=== PATIENT | male | born 1985 | race American Indian/Alaskan Native ===

== ENCOUNTER 2025-06-24 23:40 | Emergency (ER) | payer MEDICAID, SELFPAY ==
[2025-06-24 23:41] VITALS: BMI 29.8
--- NOTE | 2025-06-25 | XR_ITS ---
Examination: Duplex scan of the lower extremity, unilateral right Date and time of exam: June 25, 2025, 0107 hours INDICATIONS: Right foot pain after soccer participation 3 days ago Technique: Duplex scan of the extremity veins using B-mode/grayscale imaging and Doppler spectral analysis and color flow Attention is directed to internal echogenicity, compression and augmentation involving these veins, color flow assessment, spectral analysis Findings: Major deep venous structures in the extremity demonstrate normal course and caliber. There is no evidence of deep vein thrombosis. Normal color flow and spectral analysis Impression: Negative for DVT..
[2025-06-25 00:28] VITALS: BP 133/96; PULSE 95; RESP 18; TEMP 36.7; O2SAT 98
--- NOTE | 2025-06-25 00:46 | XR_ITS ---
Examination: Foot, right, 3 views Technique: AP, oblique, lateral views foot, 3 views Date and time of exam: June 25, 2025, 0047 hours INDICATIONS: Right foot redness swelling and pain post laceration of the foot several days ago FINDINGS: No fracture. No cortical bone destruction No foreign body Soft tissue swelling dorsum of the foot IMPRESSION: No cortical bone destruction or foreign body
--- NOTE | 2025-06-25 00:47 | PD.EDRME ---
Rapid Medical Screening Exam RME Arrival date/time: 06/24/25 23:40 39M with no significant PMH presents to ED with RLE pain, redness and swelling after he accidentally cut the bottom of his R foot several days ago. Patient has not had a tetanus shot in the past 5 years. Chief Complaint: Extremity Problem,Nontraumatic Vital signs: Vital Signs Temperature 98.1 F 06/25/25 00:28 Pulse Rate 95 06/25/25 00:28 Respiratory Rate 18 06/25/25 00:28 Blood Pressure 133/96 H 06/25/25 00:28 Pulse Oximetry (%) 98 06/25/25 00:28 Oxygen Delivery Method Room Air 06/25/25 00:28 Exam: Healing lac on R sole. Ulcerations between toes. R lower leg redness, swelling, and tenderness. Clinical Impression: osteo vs cellulitis vs ulcer vs DVT vs nec fasc
[2025-06-25 01:21] LABS: Basophils # (Auto) 0.1 Thou/mm3 (0.0-0.2); Basophils % (Auto) 1 % (0-2.5); Eosinophils # (Auto) 0.2 Thou/mm3 (0.0-0.5); Eosinophils % (Auto) 2 % (0-10); Hematocrit 47.5 % (41.0-53.0); Hemoglobin 15.8 g/dL (13.5-16.0); Immature Granulocytes Auto 0.03 Thou/mm3 (0.00-0.00); Lymphocytes # (Auto) 1.4 Thou/mm3 (1.0-4.8); Lymphocytes % (Auto) 15 % (10-50); Mean Corpuscular HGB Conc 33.3 g/dl (31.0-37.0); Mean Corpuscular Hemoglobin 29.5 pg (25.0-35.0); Mean Corpuscular Volume 89 fL (80-100); Monocytes # (Auto) 1.0 Thou/mm3 (0.0-0.8); Monocytes % (Auto) 11 % (0-12); Neutrophils # (Auto) 6.7 Thou/mm3 (1.8-7.7); Neutrophils % (Auto) 72 % (37-80); Nucleated Red Blood Cell # 0.00 Thou/mm3 (0.00-0.00); Nucleated Red Blood Cell % 0 /100 WBC (0); Platelet Count 298 Thou/mm3 (140-440); RDW Standard Deviation 42.9 fL (35.1-43.9); Red Blood Count 5.35 Miln/mm3 (4.50-5.90); White Blood Count 9.4 Thou/mm3 (3.8-10.6)
[2025-06-25] MEDS: DIPHTH,PERTUSS(ACELL),TET VAC 0.5 ML SYR- ADULT IMi (01:32)
[2025-06-25 01:37] LABS: Sed Rate (ESR) 42 mm/hr (0-15)
[2025-06-25 01:39] LABS: Alanine Aminotransferase 64 U/L (10-49); Albumin, Serum 4.6 gm/dL (3.5-5.0); Albumin/Globulin Ratio 1.4 (1.2-2.2); Alkaline Phosphatase 93 U/L (46-116); Anion Gap 11 (7-16); Aspartate Amino Transferase 34 U/L (0-34); BUN/Creatinine Ratio 6 Ratio (12-20); Bilirubin,Total 0.3 mg/dL (0.3-1.2); Blood Urea Nitrogen 9 mg/dL (9-23); C-Reactive Protein 7.4 mg/dL (0.0-0.9); Calcium 9.8 mg/dL (8.3-10.6); Calcium (Corrected) 9.8 mg/dL (8.5-10.1); Carbon Dioxide 28.1 mMol/L (20.0-31.0); Chloride 103 mMol/L (98-107); Creatinine (Component) 1.4 mg/dL (0.6-1.3); Estimated Creatinine Clearance 84.9 mL/min (>60); Globulin 3.2 gm/dL (2.3-3.5); Glucose 116 mg/dL (74-106); Osmolality,Calculated 282 (275-295); Potassium 4.2 mMol/L (3.4-5.1); Sodium 142 mMol/L (136-145); Total Protein 7.8 gm/dL (5.7-8.2); eGFR > 60 See Note
[2025-06-25 01:49] LABS: Glucose Estimated Average 105 mg/dL (80-131); Hemoglobin A1C 5.3 % Hgb (4.8-6.0)
--- NOTE | 2025-06-25 02:59 | PRELIM_ITS ---
Right lower extremity venous Doppler ultrasound with wave Doppler spectral analysis. June 25, 2025 0107 hours Clinical history: Rule out DVT. Technique: Duplex scan of the right lower extremity deep venous systems was performed utilizing 2D grayscale imaging, Doppler spectral analysis and color flow Doppler and with compression. Comparison: No prior study is available for comparison. Findings: Wei scale, color flow and spectral Doppler evaluation of the right lower extremity deep veins were performed. The common femoral, superficial femoral and popliteal veins are patent and compressible. Normal respiratory variation is noted. There is no evidence of occlusive or nonocclusive thrombus. The great saphenous vein is patent and compressible at the level of the saphenofemoral junction. Impression: No sonographic evidence of deep venous thrombosis in the right lower extremity. Report Electronically Signed By: Anders Palm 06/25/2025 2:59:04 AM [EST]
== END 2025-06-25 01:59 | disposition left against medical advice (07) ==
LOC: SERX 06-25 02:11
PROVIDERS: Physician Assistant; Emergency Provider Emergency Medicine; PCP Physician Assistant
DX: Z53.21 Procedure and treatment not carried out due to patient leaving prior to being seen by health care provider (principal)
CPT/HCPCS: 36415; 73630; 80053; 80307; 83036; 85025; 85652; 86140; 90471; 90715; 93971; 96372; 99283